=== PATIENT | male | born 1950 | race Caucasian/White ===

== ENCOUNTER 2021-05-08 12:28 | Emergency (ER) | payer BC ==
[~2021-05-08] VITALS: Ht 175.3 cm; Wt 99.8 kg
[2021-05-08 12:43] VITALS: BP 143/81
[2021-05-08] MEDS ORDERED: ASA81BEC PO (12:48)
[2021-05-08] MEDS ORDERED: DULOXETINE HCL30 MG PO (12:48)
[2021-05-08] MEDS ORDERED: PROSCAR 5MG TABL5 M1 PO (12:48)
[2021-05-08] MEDS ORDERED: FLOMAX0.4 MG PO (12:48)
[2021-05-08] MEDS ORDERED: LIPITOR 20 MG T20 M1 PO (12:48)
[2021-05-08] MEDS ORDERED: VITAMIN D310 MC2 PO (12:49)
[2021-05-08] MEDS ORDERED: MULTI FOR HIM1 EACH PO (12:49)
[2021-05-08] MEDS ORDERED: NEXIUM20 MG PO (12:49)
== END 2021-05-08 13:33 | disposition left against medical advice (07) ==
LOC: M.ERS 12:28
DX: R35.0 Frequency of micturition (principal); Z53.21 Procedure and treatment not carried out due to patient leaving prior to being seen by health care provider